=== PATIENT | male | born 1955 | race Caucasian/White ===

== ENCOUNTER 2017-07-12 14:19 | Emergency (ER) | payer SELFPAY ==
[~2017-07-12] VITALS: Ht 172.7 cm; Wt 124.7 kg
--- NOTE | 2017-07-12 17:17 | ED Integumentary General ---
General Chief Complaint: Skin/Wound Problems Stated Complaint: RT LEG POSS INFECTION Nursing Triage Note: c/o chronic wound to right lower leg. States it is more red than normal. Reportedly has had "it" for months. Source: patient Exam Limitations: no limitations History of Present Illness Date Seen by Provider: Jul 12, 2017 Time Seen by Provider: 17:12 Initial Comments The patient is a 62-year-old white male who presents with the what he believes is a right leg infection. He reports that this is been there for some time. He does not recall any injury which triggered it. He was seen by [facility] and given antibiotics which caused it to improve greatly but it did not completely resolve. He states that they were unwilling to give him a second treatment. Subsequently it has gotten steadily worse and is tender. He does not describe it breaking open and draining. Timing/Duration: other Location: extremities Allergies and Home Medications Allergies Coded Allergies: No Known Drug Allergies (Unverified , 07/12/17) Home Medications No Active Prescriptions or Reported Meds Constitutional: see HPI EENTM: no symptoms reported Respiratory: cough, short of breath, other (heavy smoker) Cardiovascular: no symptoms reported Gastrointestinal: no symptoms reported Genitourinary: no symptoms reported Musculoskeletal: no symptoms reported Skin: see HPI Psychiatric/Neurological: No Symptoms Reported Endocrine: No Symptoms Reported Past Afdpyah-Oiidus-Umhtco Hx Patient Social History Recent Foreign Travel: No Contact w/Someone Who Travel: No Recent Infectious Disease Expo: No Physical Exam Vital Signs Vital Sign - Last 12Hours 07/12/17 16:33 Temp 98.1 Pulse 90 Resp 22 B/P (MAP) 124/58 (80) Pulse Ox 92 O2 Delivery Room Air Capillary Refill : Less Than 3 Seconds General Appearance: mild distress HEENT: normal ENT inspection Neck: full range of motion Cardiovascular: normal peripheral pulses, regular rate, rhythm, no edema, no gallop, no JVD, no murmur Respiratory: chest non-tender, lungs clear, normal breath sounds, no respiratory distress, no accessory muscle use, other (overwhelming odor of cigarette smoke) Gastrointestinal: normal bowel sounds, non tender, soft, no organomegaly, no pulsatile mass Back: normal inspection Comments There is erythema and keratosis on the lateral aspect of the right calf from the lateral malleolus to the upper third. Centrally there is a brighter erythema with some induration and tenderness to palpation. Progress/Results/Core Measures Results/Orders My Orders Orders - KIMI HENNESSY MD Cbc With Automated Diff (07/12/17 16:44) Hs C Reactive Protein (07/12/17 16:44) Vital Signs/I&O Vital Sign - Last 12Hours 07/12/17 16:33 Temp 98.1 Pulse 90 Resp 22 B/P (MAP) 124/58 (80) Pulse Ox 92 O2 Delivery Room Air Blood Pressure Mean: 80 Departure Impression Impression: Primary Impression: chronic cellulitis Disposition: HOME, SELF-CARE Condition: Stable/Unchanged Departure-Patient Inst. Decision time for Depature: 17:16 Referrals: [facility] (PCP/Family) Primary Care Physician Patient Instructions: Cellulitis (Skin Infection), Adult (DC) Add. Discharge Instructions: All discharge instructions reviewed with patient and/or family. Voiced understanding. Elevate legs when possible. Take antibiotics twice daily I would expect that this may take longer than the 2 weeks I have prescribed. If not completely resolved you need to see your provider for an extension of the antibiotics. Scripts Amoxicillin/Potassium Clav (Augmentin 875-125 Tablet) 1 Each Tablet 1 EACH PO BID, #30 TAB Prov: KIMI HENNESSY MD 07/12/17 KIMI HENNESSY MD Jul 12, 2017 17:17
[2017-07-12] MEDS ORDERED: AMOX-358 PO (17:18)
[2017-07-12 17:29] LABS: BASOPHILS % (AUTO) 0 % (0-10); EOSINOPHILS # (AUTO) 0.3 10^3/uL (0.0-0.3); EOSINOPHILS % (AUTO) 2 % (0-10); HEMATOCRIT 51 % (40-54); HEMOGLOBIN 17.8 G/DL (13.3-17.7); LYMPHOCYTES # (AUTO) 3.5 X 10^3 (1.0-4.0); LYMPHOCYTES % (AUTO) 22 % (12-44); MEAN CORPUSCULAR HEMOGLOBIN 32 PG (25-34); MEAN CORPUSCULAR HGB CONC 35 G/DL (32-36); MEAN CORPUSCULAR VOLUME 92 FL (80-99); MEAN PLATELET VOLUME 10.2 FL (7.4-10.4); MONOCYTES # (AUTO) 1.2 X 10^3 (0.0-1.0); MONOCYTES % (AUTO) 8 % (0-12); NEUTROPHILS # (AUTO) 10.9 X 10^3 (1.8-7.8); NEUTROPHILS % (AUTO) 69 % (42-75); PLATELET COUNT 298 10^3/uL (130-400); RED BLOOD COUNT 5.56 10^6/uL (4.35-5.85); RED CELL DISTRIBUTION WIDTH 15.6 % (10.0-14.5); WHITE BLOOD COUNT 15.8 10^3/uL (4.3-11.0)
[2017-07-12 17:45] VITALS: BP 124/58
[2017-07-12 18:06] LABS: BAND NEUTROPHILS 0 %; BASOPHILS % (MANUAL) 0 %; EOSINOPHILS % (MANUAL) 0 %; LYMPHOCYTES % (MANUAL) 13 %; MONOCYTES % (MANUAL) 5 %; NEUTROPHILS % (MANUAL) 75 %; RBC MORPH NORMAL; REACTIVE LYMPHOCYTES 7 %
== END 2017-07-12 17:45 | disposition home or self-care (01) ==
LOC: EDUNIT# 14:19 → ER 14:21
DX: L03.115 Cellulitis of right lower limb (principal)
CPT/HCPCS: 36415; 85007; 85025; 85027; 86141; 99282